=== PATIENT | male | born 1950 | race Caucasian/White ===

== ENCOUNTER 2019-05-19 10:23 | Day surgery (SDC) | payer OTHER ==
[2019-05-18 13:18] VITALS: BMI 23.0
[2019-05-19] MEDS ORDERED: PROPOFOL 20 ML ONE (11:42)
[2019-05-19] MEDS ORDERED: PROPOFOL 200 MG/20 ML VIAL ONE (13:12)
--- NOTE | 2019-05-22 10:01 | OP ---
DATE OF PROCEDURE: 05/19/2019 PREPROCEDURE DIAGNOSIS: Atrial fibrillation. POSTPROCEDURE DIAGNOSIS: Sinus rhythm. PROCEDURE PERFORMED: Synchronized cardioversion. DESCRIPTION OF PROCEDURE: The patient was consented for the procedure. I discussed the procedure in full detail. The patient underwent successful synchronized cardioversion after anesthesia with propofol. Synchronized cardioversion performed successfully at 150 joules. The pacemaker was analyzed without issues. IMPRESSION: 1. Successful synchronized cardioversion. 2. Pacemaker analysis. Job ID: [id number]
== END 2019-05-19 14:03 | disposition home or self-care (01) ==
LOC: SDC 10:23
PROVIDERS: ATTEND Internal Medicine Cardiovascular Disease
PROC: 5A2204Z Restoration of Cardiac Rhythm, Single (ICD-10-PCS; principal; 2019-05-19)
DX: I48.0 Paroxysmal atrial fibrillation (principal); I45.10 Unspecified right bundle-branch block; E78.5 Hyperlipidemia, unspecified; E11.9 Type 2 diabetes mellitus without complications; F17.210 Nicotine dependence, cigarettes, uncomplicated; Z79.01 Long term (current) use of anticoagulants; Z79.84 Long term (current) use of oral hypoglycemic drugs; Z79.899 Other long term (current) drug therapy; Z88.8 Allergy status to other drugs, medicaments and biological substances; Z95.0 Presence of cardiac pacemaker
CPT/HCPCS: J2704

== ENCOUNTER 2020-12-18 13:23 | Outpatient (CLI) | payer MEDICARE, OTHER ==
[2020-12-19 12:12] LABS: SARS-CoV-2 PCR by NAA DETECTED (NotDetected)
== END 2020-12-18 13:24 | disposition home or self-care (01) ==
LOC: LABBT 13:23
PROVIDERS: ATTEND Internal Medicine Cardiovascular Disease
DX: U07.1 COVID-19 (principal); Z01.812 Encounter for preprocedural laboratory examination
CPT/HCPCS: U0003; U0005

== ENCOUNTER 2021-01-02 09:34 | Day surgery (SDC) | payer MEDICARE, OTHER ==
[2021-01-01 12:50] VITALS: BMI 23.0
== END 2021-01-02 12:34 | disposition home or self-care (01) ==
LOC: CCL 09:34
PROVIDERS: ATTEND Internal Medicine Cardiovascular Disease
DX: I48.0 Paroxysmal atrial fibrillation (principal); Z53.9 Procedure and treatment not carried out, unspecified reason; Z79.01 Long term (current) use of anticoagulants; Z79.84 Long term (current) use of oral hypoglycemic drugs; Z79.899 Other long term (current) drug therapy; Z88.8 Allergy status to other drugs, medicaments and biological substances
CPT/HCPCS: 93005; 93010

== ENCOUNTER 2021-02-03 07:49 | Day surgery (SDC) | payer MEDICARE, OTHER ==
[2021-02-03] MEDS ORDERED: PROPOFOL 200 MG/20 ML VIAL ONE (11:38)
== END 2021-02-03 12:35 | disposition home or self-care (01) ==
LOC: CCL 07:49
PROVIDERS: ATTEND Internal Medicine Cardiovascular Disease
PROC: 5A2204Z Restoration of Cardiac Rhythm, Single (ICD-10-PCS; principal; 2021-02-03)
DX: I48.91 Unspecified atrial fibrillation (principal); Z79.01 Long term (current) use of anticoagulants; Z79.84 Long term (current) use of oral hypoglycemic drugs; Z79.899 Other long term (current) drug therapy; Z88.8 Allergy status to other drugs, medicaments and biological substances; Z95.0 Presence of cardiac pacemaker
CPT/HCPCS: 92960; 93005; 93010; J2704